=== PATIENT | male | born 1940 | race Caucasian/White ===

== ENCOUNTER → 2017-06-08 | Outpatient (CLI) | payer OTHER ==
[~2017-06-08] MED LIST: AMLO5 PO; ASPI81CH PO; Augmentin 875-1 EACH PO; CENTRUM SILVER1 EAC4 PO; CHOL10002 PO; HYDR1TAB94 PO; JOINT HEALTH T1 EACH PO; KRILL OIL500 MG PO; OCUVITE EYE +1 EACH PO; OLME20 PO
== END | disposition home or self-care (01) ==
LOC: LAB SHORT 08:52 → PLD 08:52
DX: D22.5 Melanocytic nevi of trunk (principal)
CPT/HCPCS: 88305

== ENCOUNTER → 2017-12-14 | Outpatient (CLI) | payer OTHER | END | disposition home or self-care (01) | LOC: PLD 10:30 | DX: D48.5 Neoplasm of uncertain behavior of skin (principal) | CPT/HCPCS: 88304 ==

== ENCOUNTER → 2018-06-21 | Outpatient (CLI) | payer OTHER | END | disposition home or self-care (01) | LOC: PLD 10:03 → LAB SHORT 10:03 | DX: D22.5 Melanocytic nevi of trunk (principal); L57.0 Actinic keratosis | CPT/HCPCS: 88305 ==

== ENCOUNTER → 2018-11-09 | Outpatient (CLI) | payer OTHER ==
[~2018-11-09] MED LIST changes: +ATOR40TA PO; +AZO CRANBERRY PO; -CENTRUM SILVER1 EAC4 PO; +Florastor250 MG PO; +MULTI VITAMIN1 EACH PO; +SENN187 PO; +Tylenol325 MG PO
== END | disposition home or self-care (01) ==
LOC: PLD 13:24 → LAB SHORT 13:24
DX: L57.0 Actinic keratosis (principal); L82.1 Other seborrheic keratosis
CPT/HCPCS: 88305

== ENCOUNTER 2018-12-09 15:01 | Inpatient (IN) | payer OTHER ==
[~2018-12-09] VITALS: Ht 177.8 cm; Wt 90.7 kg
[~2018-12-09 15:01] MED LIST changes: -ATOR40TA PO; -AZO CRANBERRY PO; -Florastor250 MG PO; -SENN187 PO; -Tylenol325 MG PO
[2018-12-09 15:29] LABS: BASOPHILS ABSOLUTE AUTO 0.03 K/mm3 (0.00-0.23); BASOPHILS PERCENT AUTO 0 % (0-2); EOSINOPHILS ABSOLUTE AUTO 0.07 K/mm3 (0.00-0.68); EOSINOPHILS PERCENT AUTO 1 % (0-6); Hematocrit 42.8 % (37.0-53.0); IMMATURE GRAN ABSOLUTE AUTO 0.01 K/mm3 (0.00-0.10); IMMATURE GRAN PERCENT AUTO 0 % (0-1); LYMPHOCYTES ABSOLUTE AUTO 2.24 K/mm3 (0.84-5.20); LYMPHOCYTES PERCENT AUTO 31 % (21-46); MONOCYTES ABSOLUTE AUTO 0.73 K/mm3 (0.16-1.47); MONOCYTES PERCENT AUTO 10 % (4-13); Mean Corpuscular HGB 30.8 pg (26.0-34.0); Mean Corpuscular HGB Conc 32.7 g/dL (31.5-36.5); Mean Corpuscular Volume 94 fL (80-100); Mean Platelet Volume 10.2 fL (9.1-12.4); NEUTROPHILS ABSOLUTE AUTO 4.26 K/mm3 (1.96-9.15); NEUTROPHILS PERCENT AUTO 58 % (41-73); Platelet Count 226 K/mm3 (150-400); RDW Coefficient Variation 12.7 % (11.7-14.2); RDW Standard Deviation 43.9 fL (35.1-46.3); Red Blood Cell Count 4.55 M/mm3 (4.30-5.90); White Blood Cell Count 7.34 K/mm3 (4.00-11.30)
[2018-12-09 15:41] LABS: International Normalized Ratio 0.95; Prothrombin Time Results 10.1 Sec (9.7-11.5)
[2018-12-09 16:03] LABS: Bilirubin, Total 0.4 mg/dL (0.1-1.0); Bun/Creatinine Ratio 17.9 (12.0-20.0); Calcium, Blood 9.5 mg/dL (8.5-10.1); Creatinine, Blood 1.62 mg/dL (0.60-1.20); Globulin, Blood 3.9 g/dL (2.2-4.0); Potassium, Blood 4.1 mmol/L (3.5-5.5); Total Protein, Blood 7.9 g/dL (6.4-8.2)
[2018-12-09] MEDS ORDERED: Florastor250 MG PO (21:54)
[2018-12-09] MEDS ORDERED: AZO CRANBERRY PO (22:56)
--- NOTE | 2018-12-10 06:51 | NUR ---
SUMMARY PT ADMITTED TO ROOM PCU 11 TONIGHT FOR DX OF CVA. PT A/O. AMBULATORY FOR BRP. ALTHOUGH INSTRUCTED TO CALL FOR HELP FOR SAFETY. PUPILS UNEQUAL WHICH PT REPORTS HIS BASELINE FOR YEARS SINCE SHINGLES IN R EYE. PT OVERTON WITHOUT DIFF.DENIES ANY N/T. 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 PT ALSO WITH R MOUTH DROOP AND SLIGHTLY SLURRED SPEECH THAT PT REPORTS IMPROVING FROM INITIAL ADMIT TO ER. PT REMAINS NPO PER ORDERS PENDING ECHO AND MRI.
--- NOTE | 2018-12-10 08:44 | NUR ---
BEGINNING OF SHIFT Assumed care at 0700. Bedside report received from Chiquita ESCALANTE. Pt on room air. Able to participate in discussion. Sinus rhtyhm per monitor. Pt NPO, however participated well in bedside swallow eval. Pills given whole with water. Will continue NPO status otherwise. Bed in lowest position. Call light in reach. Pt working with physical therapist, Britton, at this time.
--- NOTE | 2018-12-10 09:30 | NUR ---
UPDATE Dr Istrate in to see pt. Update provided. Provider states pt is okay for medical floor status with telemetry. ST in room at this time. Bedside swallow eval discussed.
--- NOTE | 2018-12-10 13:23 | NUR ---
ECHOCARDIOGRAM COMPLETE
--- NOTE | 2018-12-10 15:00 | NUR ---
CALL PLACED TO DR FLEMING Discussed Head MRI results. Inquired if pt requires any additional anticoagulation. No new orders at this time. Plan of care reviewed with patient and family.
--- NOTE | 2018-12-10 18:13 | NUR ---
SUMMARY Pt has been independent in room and in halls with assist from his . Pt has tolerated meals well w/o coughing, gagging, or signs of aspiration. Pt remains A&O x 4. Right facial droop and minimal right sided weakness unchanged from initial assessment. Pt remains on room air. Remains on telemetry, sinus rhythm without ectopy. Pt medical floor status. Transferred to room 334. Telephone report given to med floor RN, July. Pt departed from PCU at 1745 accompanied by PCT Omayra. Pt's spouse accompanied him during transfer. Chart, belalecs, and meds transferred with patient.
--- NOTE | 2018-12-10 18:15 | NUR ---
PATIENT ARRIVES VIA W/C FROM PCU AROUND 1730. ALERT. ORIENTED. RT FACIAL DROOP. ONCOLOGY COORDINATOR APPEAR EQUAL. SPEECH LITTLE SLURRED. NO RT ARM DRIFT. LUNGS CLEAR T/O. TELE ON. IV X 2. DOES DROOL LITTLE BIT OUT OF RT SIDE OF MOUTH. PUPILS UNEQUAL WITH LEFT AT 3 AND BRISK WHILE RT 5 AND SLOW. 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 CAN USE STRAW TO DRINK BY PUTTING IT IN LEFT SIDE OF MOUTH. TAKES MEDS W/APPLESAUCE. ON R.A. UNLABORED RESPIRATIONS. ORIENTED TO ROOM. URINAL GIVEN STS WHEN HE HAS TO GO ITS QUICK. WCTM.
[2018-12-11 04:46] LABS: Hematocrit 39.4 % (37.0-53.0); Hemoglobin 13.1 g/dL (13.5-17.5); Mean Corpuscular HGB 31.1 pg (26.0-34.0); Mean Corpuscular HGB Conc 33.2 g/dL (31.5-36.5); Mean Corpuscular Volume 94 fL (80-100); Mean Platelet Volume 10.1 fL (9.1-12.4); Platelet Count 217 K/mm3 (150-400); RDW Coefficient Variation 12.7 % (11.7-14.2); RDW Standard Deviation 43.6 fL (35.1-46.3); Red Blood Cell Count 4.21 M/mm3 (4.30-5.90); White Blood Cell Count 5.76 K/mm3 (4.00-11.30)
--- NOTE | 2018-12-11 04:59 | NUR ---
SHIFT SUMMARY PT INCURRED A LACUNAR CVA. PT DOES HAVE A HX OF HTN, BUT NO PREVIOUS CVA/TIA'S. RIGHT SIDED DEFECITS NOW EXIST. PT SLURRS HIS WORDS AND HAS DIFFICULTY AMBULATING DUE TO RT SIDED WEAKNESS. DYSPHAGIA/ASPIRATION PRECAUTIONS. MEDS TAKEN WHOLE WITH APPLESAUCE. TELEMETRY REVEALS NSR @ 65 BPM PER PCU TIRE SERVICE TECHNICIAN. ADMITTED ON 12/09, HOSPITALIST IS ALLOWING FOR PERMISSIVE HYPERTENSION FOR FIRST 24 HRS. LATEST BP THIS SHIFT WAS 160/90.
[2018-12-11 05:17] LABS: Anion Gap 6 mmol/L (6-16); Blood Urea Nitrogen 19 mg/dL (8-24); Bun/Creatinine Ratio 13.8 (12.0-20.0); CHOL/HDL RATIO 3.3; CO2, Blood 25 mmol/L (21-32); Calcium, Blood 8.9 mg/dL (8.5-10.1); Chloride, Blood 111 mmol/L (98-108); Cholesterol 205 mg/dL (50-200); Creatinine, Blood 1.38 mg/dL (0.60-1.20); Glomerular Filtration Rate 53 (60-); Glucose, Blood 89 mg/dL (70-99); HDL Cholesterol 63 mg/dL (>39); LDL/HDL RATIO 1.8; Low Density Lipoprotein Chol 116 mg/dL (0-110); Potassium, Blood 3.8 mmol/L (3.5-5.5); Sodium, Blood 142 mmol/L (136-145); Triglycerides 131 mg/dL (30-160); Very Low Density Lipoprot Chol 26 mg/dL (6-32)
--- NOTE | 2018-12-11 15:26 | NUR ---
SHIFT SUMMARY PATIENT HAS BEEN PLEASANT AND COOPERATIVE WITH STAFF. LEFT FACIAL DROOP NOTED BUT SEEMS TO HAVE EQUAL DEMURRAGE MAN TO BILAT HANDS AND EQUAL STRENGTH TO BLE. AMBULATED 2 LAPS WITH FWW THIS AFTERNOON. NO ACUTE CHANGES NOTED OR REPORTED AT THIS TIME. WILL CONTINUE TO MONITOR.
--- NOTE | 2018-12-11 19:53 | NUR ---
PT HYPERTENSIVE COUNTER CLERK REPORTS BP OF 184/107 IN LEFT ARM AND 194/96 IN RIGHT ARM, I PERSONALLY RE-CHECKED PT'S BP VALUES AND FOUND BP OF 204/99 IN LEFT ARM AND 185/94 IN RIGHT ARM. ALTHOUGH I AM AWARE THAT WE ARE ALLOWING PERMISSIVE HYPERTENSION I AM CURIOUS IF THERE ARE PARAMETERS. CONSULTED WITH HAND IRONER, SHE ADVISED ME TO WAIT UNTIL ANOTHER RN CALLS NIGHT HOSPITALIST AND PIGGYBACK CALL TO GAIN ADVISEMENT.
--- NOTE | 2018-12-11 21:03 | NUR ---
CALLED NIGHT HOSPITALIST ADVISED HIM OF THE PT'S ELEVATED BP AND THE PERMISSIVE HYPERTENSION. HE ADVISED ME THAT THIS BLOOD PRESSURE IS ACCEPTABLE. WILL CONTINUE TO MONITOR.
--- NOTE | 2018-12-12 04:22 | NUR ---
SHIFT SUMMARY PT INCURRED A LEFT SIDED LACUNAR STROKE. DYSPHAGIA/ASPIRATION PRECAUTIONS - RT FACIAL DROOP. NO HX OF A PREVIOUS CVA. WAS INFORMED PHYSICAL THERAPY AMBULATED THE PT W/FWW IN THE HALLS. PERMISSIVE HYPERTENSION HAS BEEN ALLOWED SINCE ADMIT (SEE PREVIOUS NOTE). I DID NOTE THAT THE HOSPITALIST HAS SCHEDULED BP MEDS TO RESUME IN THE MORNING. TELEMETRY IS MONITORING NSR @ 64 BPM W/1ST DEGREE HEART BLOCK.
--- NOTE | 2018-12-12 05:51 | NUR ---
CONSULTED WITH CLOTHING SORTER INFORMED BY PCU GROUND SUPPORT EQUIPMENT MECHANIC THAT PT HAD A VERY BRIEF EPISODE OF BRADYCARDIA (46 BPM), BUT THEN IMPROVED HR TO 56 BPM. WE HAVE NOTED THAT THIS PT'S BREATHING DURING SLEEP SEEMS APNEIC. CHARGE INSTRUCTED ME TO CONTINUE TO MONITOR.
[2018-12-12] MEDS ORDERED: Tylenol325 MG PO (11:23)
[2018-12-12] MEDS ORDERED: ASPI81CH PO (11:24)
[2018-12-12] MEDS ORDERED: SENN187 PO (11:25)
[2018-12-12] MEDS ORDERED: ATOR40TA PO (11:25)
--- NOTE | 2018-12-12 12:00 | NUR ---
DISCHARGE INSTRUCTIONS VERBALIZED TO PATIENT AND WELL A PRINTED COPY FOR REFERENCE. ALL QUESTIONS ANSWERED. TELE AND IV REMOVED. PATIENT DISCHARGED HOME WITH AT 1200.
== END 2018-12-12 11:59 | disposition home or self-care (01) | DRG 66 ==
LOC: ER 15:01 → PCU 20:15 → MEDS 12-10 17:37 → ENPENDDIS 12-12 11:17 → MEDS 12-12 11:59
PROVIDERS: Family Medicine; Physician Assistant; ADMIT Hospitalist
DX: I63.9 Cerebral infarction, unspecified (principal); R29.810 Facial weakness; R47.81 Slurred speech; N18.3 Chronic kidney disease, stage 3 (moderate); I12.9 Hypertensive chronic kidney disease with stage 1 through stage 4 chronic kidney disease, or unspecified chronic kidney disease; Z87.891 Personal history of nicotine dependence; Z79.82 Long term (current) use of aspirin; Z79.899 Other long term (current) drug therapy
CPT/HCPCS: 36415; 70450; 70496; 70498; 70551; 76377; 80048; 80053; 80061; 85025; 85027; 85610; 92610; 93005; 93010; 93306; 96360-59; 96361; 97112; 97162; 97165; 97535; 99285-25; J1650; J7030; Q9967

== ENCOUNTER 2019-06-20 12:00 | Day surgery (SDC) | payer OTHER ==
[~2019-06-20] VITALS: Ht 175.3 cm; Wt 89.7 kg
[~2019-06-20 12:00] MED LIST changes: +ATOR40TA PO; +AZO CRANBERRY PO; +Florastor250 MG PO; +SENN187 PO; +Tylenol325 MG PO
--- NOTE | 2019-06-20 13:07 | NUR ---
Ambulatory in Day Surgery History, Chart, Medications and Allergies reviewed before start of procedure.Patient confirms NPO status and agrees with scheduled surgery. Patient reports completing Chlorhexadine shower X2 prior to admission to hospital.Lungs clear T/O to Auscultation. Patient States Post-Procedure ride home has been arranged WITH .
[2019-06-20] MEDS ORDERED: CLOP75 PO (13:42)
--- NOTE | 2019-06-20 16:33 | NUR ---
1630-ALERT AND CHEERFUL. ATE CRACKERS ,DRANK JUICE AND HAD A PO PAIN MED W/O ANY NAUSEA.
--- NOTE | 2019-06-20 16:53 | NUR ---
1650-IV DC'D WITH CATH INTACT. PT DC'D TO HOME.
== END 2019-06-20 22:35 | disposition home or self-care (01) ==
LOC: ORSCMMR 12:00 → ORD 13:15 → ORSCMMR 13:15
PROVIDERS: Surgery
PROC: 0YU60JZ Supplement Left Inguinal Region with Synthetic Substitute, Open Approach (ICD-10-PCS; principal; 2019-06-20 13:15)
DX: K40.30 Unilateral inguinal hernia, with obstruction, without gangrene, not specified as recurrent (principal); N18.3 Chronic kidney disease, stage 3 (moderate); I10 Essential (primary) hypertension; G47.33 Obstructive sleep apnea (adult) (pediatric); Z86.73 Personal history of transient ischemic attack (TIA), and cerebral infarction without residual deficits; Z79.82 Long term (current) use of aspirin; Z79.899 Other long term (current) drug therapy; Z79.01 Long term (current) use of anticoagulants
CPT/HCPCS: A9270-GY; C1781; J0690; J1100; J1885; J2250; J2405; J2704; J3010; J7120

== ENCOUNTER 2019-07-15 23:05 | Emergency (ER) | payer OTHER ==
[~2019-07-15] VITALS: Ht 175.3 cm; Wt 90.7 kg
[~2019-07-15 23:05] MED LIST changes: +CLOP75 PO
[2019-07-16] MEDS ORDERED: SUPER BEETS (00:26)
[2019-07-16] MEDS ORDERED: Lugol's Strong I1 ML PO (00:27)
== END 2019-07-16 00:21 | disposition home or self-care (01) ==
LOC: ER 23:05
DX: S01.512A Laceration without foreign body of oral cavity, initial encounter (principal); I12.9 Hypertensive chronic kidney disease with stage 1 through stage 4 chronic kidney disease, or unspecified chronic kidney disease; N18.3 Chronic kidney disease, stage 3 (moderate); Z88.5 Allergy status to narcotic agent; Z79.82 Long term (current) use of aspirin; Z79.899 Other long term (current) drug therapy; Z79.02 Long term (current) use of antithrombotics/antiplatelets; Z87.891 Personal history of nicotine dependence; Y04.1XXA Assault by human bite, initial encounter
CPT/HCPCS: 99282

== ENCOUNTER 2020-10-03 07:51 | Day surgery (SDC) | payer OTHER ==
[~2020-10-03] VITALS: Ht 175.3 cm; Wt 87.7 kg
[~2020-10-03 07:51] MED LIST changes: +ATOR20 PO; +Aspir 8181 MG PO; +FISH OIL 1,2001 EAC7 PO; +Lugol's Strong I1 ML PO; +MECL25 PO; +Plavix75 MG PO; +SUPER BEETS
== END 2020-10-03 09:40 | disposition home or self-care (01) ==
LOC: ORSCSDS 07:51
PROVIDERS: Surgery
PROC: 0DBM8ZX Excision of Descending Colon, Via Natural or Artificial Opening Endoscopic, Diagnostic (ICD-10-PCS; principal; 2020-10-03 09:00)
PROC: 0DBC8ZX Excision of Ileocecal Valve, Via Natural or Artificial Opening Endoscopic, Diagnostic (ICD-10-PCS; principal; 2020-10-03 09:00)
PROC: 0DBL8ZX Excision of Transverse Colon, Via Natural or Artificial Opening Endoscopic, Diagnostic (ICD-10-PCS; principal; 2020-10-03 09:00)
PROC: 0DBN8ZX Excision of Sigmoid Colon, Via Natural or Artificial Opening Endoscopic, Diagnostic (ICD-10-PCS; principal; 2020-10-03 09:00)
PROC: 0DBK8ZX Excision of Ascending Colon, Via Natural or Artificial Opening Endoscopic, Diagnostic (ICD-10-PCS; principal; 2020-10-03 09:00)
DX: Z12.11 Encounter for screening for malignant neoplasm of colon (principal); D12.0 Benign neoplasm of cecum; D12.2 Benign neoplasm of ascending colon; D12.3 Benign neoplasm of transverse colon; D12.4 Benign neoplasm of descending colon; D12.5 Benign neoplasm of sigmoid colon; E78.00 Pure hypercholesterolemia, unspecified; I10 Essential (primary) hypertension; F17.210 Nicotine dependence, cigarettes, uncomplicated; Z79.82 Long term (current) use of aspirin; Z79.899 Other long term (current) drug therapy
CPT/HCPCS: 88305; J2704; J7120

== ENCOUNTER → 2021-12-15 | Outpatient (CLI) | payer OTHER | END | disposition home or self-care (01) | LOC: LAB SHORT 12:29 → PLD 12:29 | DX: C40.22 Malignant neoplasm of long bones of left lower limb (principal) | CPT/HCPCS: 88305 ==

== ENCOUNTER 2023-09-21 07:54 | Day surgery (SDC) | payer OTHER ==
[~2023-09-21] VITALS: Ht 177.8 cm; Wt 85.5 kg
[~2023-09-21 07:54] MED LIST changes: +Balanced Salt Epinephrine Irrigation Solution 500 mL IR SCH; +Lidocaine HCl/Pf 1% 5 ML VIAL XX SCH; +Moxifloxacin HCL 0.5 MG/0.1 ML 0.4MLSYR LEFTEYE SCH; +Moxifloxacin HCL 0.5 MG/0.1 ML 0.4MLSYR RIGHTEYE SCH; +NS 500 ML IV ONE; +PHENYLEPHRINE\\TROPICAMIDE\\TETRACAINE OPHTHALMIC DILATING SOLN LEFTEYE PRN; +PHENYLEPHRINE\\TROPICAMIDE\\TETRACAINE OPHTHALMIC DILATING SOLN RIGHTEYE PRN; +Povidone-Iodine 450 DROP/30 ML Solution LEFTEYE SCH; +Povidone-Iodine 450 DROP/30 ML Solution RIGHTEYE SCH
[2023-09-21] MEDS ORDERED: AREDS2 (08:22)
[2023-09-21] MEDS ORDERED: [UNRECOGNIZED DRUG - OTHER] (08:22)
[2023-09-21] MEDS ORDERED: VITAMIN D32000 UNIT (08:23)
[2023-09-21] MEDS ORDERED: KRILL OIL500 MG (08:24)
[2023-09-21] MEDS ORDERED: COQ10 (08:25)
[2023-09-21] MEDS ORDERED: MULTI-VITAMIN1 EAC2 (08:26)
[2023-09-21] MEDS ORDERED: NS 500 ML IV ONE (08:35)
--- NOTE | 2023-09-21 08:35 | NUR ---
09/21/23 0835 Lois Lomax AT 0816 PLEDGET AT 0817
[2023-09-21] MEDS ORDERED: Midazolam HCl 1MG / ML 2ML Vial ONE (09:04)
[2023-09-21] MEDS ORDERED: Tetracaine HCl 0.5% Opth Soln 15 ml RIGHTEYE ONE (09:05)
[2023-09-21 11:01] VITALS: BP 154/76
== END 2023-09-21 09:48 | disposition home or self-care (01) ==
LOC: ORSCSDS 07:54
PROVIDERS: Student in an Organized Health Care Education/Training Program
PROC: 08RJ3JZ Replacement of Right Lens with Synthetic Substitute, Percutaneous Approach (ICD-10-PCS; principal; 2023-09-21 09:00)
DX: H25.813 Combined forms of age-related cataract, bilateral (principal); I12.9 Hypertensive chronic kidney disease with stage 1 through stage 4 chronic kidney disease, or unspecified chronic kidney disease; N18.30 Chronic kidney disease, stage 3 unspecified; E78.00 Pure hypercholesterolemia, unspecified; G47.33 Obstructive sleep apnea (adult) (pediatric); Z85.53 Personal history of malignant neoplasm of renal pelvis; Z86.73 Personal history of transient ischemic attack (TIA), and cerebral infarction without residual deficits; Z85.840 Personal history of malignant neoplasm of eye; D72.829 Elevated white blood cell count, unspecified; Z79.02 Long term (current) use of antithrombotics/antiplatelets; Z79.899 Other long term (current) drug therapy
CPT/HCPCS: J2250; J7040; V2632

== ENCOUNTER 2024-06-27 13:08 | Day surgery (SDC) | payer OTHER ==
[~2024-06-27] VITALS: Ht 177.8 cm; Wt 87.7 kg
[~2024-06-27 13:08] MED LIST changes: +AREDS2; -Balanced Salt Epinephrine Irrigation Solution 500 mL IR SCH; +COQ10; +KRILL OIL500 MG; +Lactated Ringer's 1,000 ML IV ONE; -Lidocaine HCl/Pf 1% 5 ML VIAL XX SCH; +MULTI-VITAMIN1 EAC2; -Moxifloxacin HCL 0.5 MG/0.1 ML 0.4MLSYR LEFTEYE SCH; -Moxifloxacin HCL 0.5 MG/0.1 ML 0.4MLSYR RIGHTEYE SCH; -NS 500 ML IV ONE; -PHENYLEPHRINE\\TROPICAMIDE\\TETRACAINE OPHTHALMIC DILATING SOLN LEFTEYE PRN; -PHENYLEPHRINE\\TROPICAMIDE\\TETRACAINE OPHTHALMIC DILATING SOLN RIGHTEYE PRN; -Povidone-Iodine 450 DROP/30 ML Solution LEFTEYE SCH; -Povidone-Iodine 450 DROP/30 ML Solution RIGHTEYE SCH; +VITAMIN D32000 UNIT; +[UNRECOGNIZED DRUG - OTHER]; +propofoL 50 ML IV ONE
[2024-06-27] MEDS ORDERED: HYDCHL25 (13:26)
[2024-06-27] MEDS ORDERED: Lactated Ringer's 1,000 ML IV ONE (14:31)
[2024-06-27 16:25] VITALS: BP 141/77
== END 2024-06-27 16:07 | disposition home or self-care (01) ==
LOC: ORSCSDS 13:08
PROVIDERS: Surgery
PROC: 0DBM8ZX Excision of Descending Colon, Via Natural or Artificial Opening Endoscopic, Diagnostic (ICD-10-PCS; principal; 2024-06-27 14:30)
PROC: 0DBN8ZX Excision of Sigmoid Colon, Via Natural or Artificial Opening Endoscopic, Diagnostic (ICD-10-PCS; principal; 2024-06-27 14:30)
PROC: 0DBK8ZX Excision of Ascending Colon, Via Natural or Artificial Opening Endoscopic, Diagnostic (ICD-10-PCS; principal; 2024-06-27 14:30)
PROC: 0DBH8ZX Excision of Cecum, Via Natural or Artificial Opening Endoscopic, Diagnostic (ICD-10-PCS; principal; 2024-06-27 14:30)
DX: Z12.11 Encounter for screening for malignant neoplasm of colon (principal); Z86.0101 Personal history of adenomatous and serrated colon polyps; D12.0 Benign neoplasm of cecum; D12.2 Benign neoplasm of ascending colon; D12.4 Benign neoplasm of descending colon; D12.5 Benign neoplasm of sigmoid colon; K63.5 Polyp of colon; Z86.73 Personal history of transient ischemic attack (TIA), and cerebral infarction without residual deficits; Z79.02 Long term (current) use of antithrombotics/antiplatelets; I12.9 Hypertensive chronic kidney disease with stage 1 through stage 4 chronic kidney disease, or unspecified chronic kidney disease; N18.30 Chronic kidney disease, stage 3 unspecified; E78.00 Pure hypercholesterolemia, unspecified; I48.92 Unspecified atrial flutter; Z79.899 Other long term (current) drug therapy; Z85.59 Personal history of malignant neoplasm of other urinary tract organ; Z85.840 Personal history of malignant neoplasm of eye
CPT/HCPCS: 88305; J2704; J7120

== ENCOUNTER 2024-12-20 21:07 | Emergency (ER) | payer OTHER ==
[~2024-12-20] VITALS: Ht 175.3 cm; Wt 87.7 kg
[~2024-12-20 21:07] MED LIST changes: +HYDCHL25; -Lactated Ringer's 1,000 ML IV ONE; -propofoL 50 ML IV ONE
[2024-12-20 21:38] LABS: BASOPHILS ABSOLUTE AUTO 0.05 K/mm3 (0.00-0.23); BASOPHILS PERCENT AUTO 1 % (0-2); EOSINOPHILS ABSOLUTE AUTO 0.07 K/mm3 (0.00-0.68); EOSINOPHILS PERCENT AUTO 1 % (0-6); Hematocrit 35.8 % (37.0-53.0); Hemoglobin 12.2 g/dL (13.5-17.5); IMMATURE GRAN ABSOLUTE AUTO 0.02 K/mm3 (0.00-0.10); IMMATURE GRAN PERCENT AUTO 0 % (0-1); LYMPHOCYTES ABSOLUTE AUTO 1.59 K/mm3 (0.84-5.20); LYMPHOCYTES PERCENT AUTO 18 % (21-46); MONOCYTES ABSOLUTE AUTO 0.63 K/mm3 (0.16-1.47); MONOCYTES PERCENT AUTO 7 % (4-13); Mean Corpuscular HGB Conc 34.1 g/dL (31.5-36.5); Mean Corpuscular Volume 90 fL (80-100); NEUTROPHILS ABSOLUTE AUTO 6.53 K/mm3 (1.96-9.15); NEUTROPHILS PERCENT AUTO 73 % (41-73); NRBC ABSOLUTE 0.00 K/mm3 (0.00-0.02); NRBC Auto 0.0 /100 WBC (0.0-0.2); RDW Coefficient Variation 13.0 % (11.7-14.2); RDW Standard Deviation 42.8 fL (35.1-46.3)
[2024-12-20 22:00] LABS: Platelet Count 237 K/mm3 (150-400)
[2024-12-20 22:12] LABS: Alanine Aminotransfer (ALT/SGP 41.0 U/L (12-78); Albumin, Blood 4.0 g/dL (3.4-5.0); Albumin/Globulin Ratio 1.2 (0.8-1.8); Anion Gap 11.0 mmol/L (3-11); Aspartate Aminotrans (AST/SGOT 54.0 U/L (12-37); Bilirubin, Total 0.6 mg/dL (0.1-1.0); Blood Urea Nitrogen 34.0 mg/dL (8-24); CO2, Blood 25.0 mmol/L (21-32); Calcium, Blood 9.4 mg/dL (8.5-10.1); Chloride, Blood 106.0 mmol/L (98-108); Creatinine, Blood 1.87 mg/dL (0.60-1.20); Globulin, Blood 3.2 g/dL (2.2-4.0); Glucose, Blood 125.0 mg/dL (70-99); Magnesium, Blood 2.4 mg/dL (1.6-2.4); Potassium, Blood 5.0 mmol/L (3.5-5.5); Sodium, Blood 137.0 mmol/L (136-145); Total Protein, Blood 7.2 g/dL (6.4-8.2)
[2024-12-20 22:36] LABS: Prothrombin Time Results 11.3 Sec (9.7-11.5)
[2024-12-20 22:51] LABS: Source, Urine Clean Catch
[2024-12-20 23:01] LABS: Influenza A, PCR NEGATIVE (NEGATIVE); Influenza B, PCR NEGATIVE (NEGATIVE); Resp Syncytial Virus, PCR NEGATIVE (NEGATIVE); SARS-Cov-2 (COVID-19) PCR, MMC NEGATIVE (NEGATIVE)
[2024-12-20 23:08] LABS: Bilirubin, Urine Neg (Neg); Glucose Qualitative, Urine Neg (Neg); Ketones, Urine Neg (Neg); Leukocyte Esterase, Urine Neg (Neg); Protein, Urine Neg (Neg); Specific Gravity, Urine 1.010 (1.003-1.022); Urobilinogen, Urine NORM (Normal)
[2024-12-20 23:21] LABS: Color, Urine Pale Yellow (P-Yellow)
[2024-12-20 23:22] LABS: White Blood Cells, Urine 0-2 /hpf (0-5)
[2024-12-21] MEDS ORDERED: Heparin Sodium,Porcine/0.5 NS 500 ML IV SCH (00:25)
[2024-12-21 00:53] LABS: Anti-Xa UFH, PHA Monitoring <0.10 IU/mL
[2024-12-21 01:00] VITALS: BP 133/76
== END 2024-12-21 01:25 | disposition short-term general hospital (02) ==
LOC: ER 21:07
PROVIDERS: Student in an Organized Health Care Education/Training Program
DX: G45.9 Transient cerebral ischemic attack, unspecified (principal); I65.21 Occlusion and stenosis of right carotid artery; R31.9 Hematuria, unspecified; I12.9 Hypertensive chronic kidney disease with stage 1 through stage 4 chronic kidney disease, or unspecified chronic kidney disease; N18.30 Chronic kidney disease, stage 3 unspecified; Z88.5 Allergy status to narcotic agent; Z79.82 Long term (current) use of aspirin; Z79.899 Other long term (current) drug therapy; Z87.891 Personal history of nicotine dependence
CPT/HCPCS: 70450; 70496; 70498; 71045; 80053; 81001; 83735; 85025; 85520; 85610; 85730; 86850; 86900; 86901; 87637; 93005; 93010; 96365; 99285-25; J1644; Q9967

== ENCOUNTER 2025-02-08 15:35 | Emergency (ER) | payer OTHER ==
[~2025-02-08] VITALS: Ht 177.8 cm; Wt 79.4 kg
[~2025-02-08 15:35] MED LIST changes: -ATOR20 PO; +ATOR80 PO; +HYDCHL12.5 PO; -HYDCHL25
[2025-02-08 16:10] LABS: BASOPHILS ABSOLUTE AUTO 0.02 K/mm3 (0.00-0.23); BASOPHILS PERCENT AUTO 0 % (0-2); EOSINOPHILS ABSOLUTE AUTO 0.28 K/mm3 (0.00-0.68); EOSINOPHILS PERCENT AUTO 2 % (0-6); Hematocrit 18.7 % (37.0-53.0); Hemoglobin 6.1 g/dL (13.5-17.5); IMMATURE GRAN ABSOLUTE AUTO 0.20 K/mm3 (0.00-0.10); IMMATURE GRAN PERCENT AUTO 1 % (0-1); LYMPHOCYTES ABSOLUTE AUTO 2.50 K/mm3 (0.84-5.20); LYMPHOCYTES PERCENT AUTO 14 % (21-46); MONOCYTES ABSOLUTE AUTO 1.63 K/mm3 (0.16-1.47); MONOCYTES PERCENT AUTO 9 % (4-13); Mean Corpuscular HGB Conc 32.6 g/dL (31.5-36.5); Mean Corpuscular Volume 98 fL (80-100); NEUTROPHILS ABSOLUTE AUTO 12.71 K/mm3 (1.96-9.15); NEUTROPHILS PERCENT AUTO 73 % (41-73); NRBC ABSOLUTE 0.02 K/mm3 (0.00-0.02); NRBC Auto 0.1 /100 WBC (0.0-0.2); Platelet Count 389 K/mm3 (150-400); RDW Coefficient Variation 15.5 % (11.7-14.2); RDW Standard Deviation 52.9 fL (35.1-46.3)
[2025-02-08] MEDS ORDERED: Celexa20 MG PO (16:20)
[2025-02-08] MEDS ORDERED: LIDO700A20 TOP (16:21)
[2025-02-08] MEDS ORDERED: CEFP200 PO (16:22)
[2025-02-08] MEDS ORDERED: BRILINTA90 M1 PO (16:22)
[2025-02-08] MEDS ORDERED: IPRAT-ALBUT 0.5-3 ML INH (16:23)
[2025-02-08] MEDS ORDERED: HYOS.125 PO (16:23)
[2025-02-08 16:35] LABS: Alanine Aminotransfer (ALT/SGP 105.0 U/L (12-78); Albumin, Blood 2.9 g/dL (3.4-5.0); Albumin/Globulin Ratio 0.8 (0.8-1.8); Anion Gap 8.0 mmol/L (3-11); Aspartate Aminotrans (AST/SGOT 38.0 U/L (12-37); Bilirubin, Total 0.3 mg/dL (0.1-1.0); Blood Urea Nitrogen 79.0 mg/dL (8-24); CO2, Blood 33.0 mmol/L (21-32); Calcium, Blood 9.1 mg/dL (8.5-10.1); Chloride, Blood 99.0 mmol/L (98-108); Creatinine, Blood 1.95 mg/dL (0.60-1.20); Globulin, Blood 3.7 g/dL (2.2-4.0); Glucose, Blood 121.0 mg/dL (70-99); Potassium, Blood 3.6 mmol/L (3.5-5.5); Sodium, Blood 136.0 mmol/L (136-145); Total Protein, Blood 6.6 g/dL (6.4-8.2)
[2025-02-08] MEDS ORDERED: NS 1,000 ML IV SCH (17:15)
[2025-02-08 22:00] VITALS: BP 140/71
== END 2025-02-08 22:40 | disposition home or self-care (01) ==
LOC: ER 15:35
PROVIDERS: Emergency Medicine
DX: D64.9 Anemia, unspecified (principal); I12.9 Hypertensive chronic kidney disease with stage 1 through stage 4 chronic kidney disease, or unspecified chronic kidney disease; N18.30 Chronic kidney disease, stage 3 unspecified; Z87.891 Personal history of nicotine dependence; Z88.5 Allergy status to narcotic agent; Z88.8 Allergy status to other drugs, medicaments and biological substances
CPT/HCPCS: 36430; 80053; 85025; 86850; 86900; 86901; 86923; 93005; 93010; 99285-25; J7030; P9016